=== PATIENT | female | born 1960 | race Caucasian/White ===

== ENCOUNTER 2018-03-01 10:27 | Emergency (ER) | payer OTHER ==
[2018-03-01] MEDS ORDERED: AMOXicillin 250 MG CAP ONE (11:13)
[2018-03-01] MEDS ORDERED: Bacitracin Zinc 1 Packet ONE (11:13)
== END 2018-03-01 11:30 | disposition home or self-care (01) ==
LOC: BURERS 10:27
DX: S71.151A Open bite, right thigh, initial encounter (principal); I10 Essential (primary) hypertension; E11.9 Type 2 diabetes mellitus without complications; Z79.84 Long term (current) use of oral hypoglycemic drugs; Z79.899 Other long term (current) drug therapy; W54.0XXA Bitten by dog, initial encounter
CPT/HCPCS: 99283

== ENCOUNTER 2019-04-30 11:36 | Emergency (ER) | payer OTHER ==
[2019-04-30] MEDS ORDERED: Amoxicillin/Potassium Clav 875 MG TAB ONE (12:16)
[2019-04-30] MEDS ORDERED: Adacel (T-DAP) 0.5 ML SYRINGE ONE (12:20)
== END 2019-04-30 12:26 | disposition home or self-care (01) ==
LOC: BURERS 11:36
DX: S61.251A Open bite of left index finger without damage to nail, initial encounter (principal); I10 Essential (primary) hypertension; E11.9 Type 2 diabetes mellitus without complications; Z79.899 Other long term (current) drug therapy; Z23 Encounter for immunization; Z79.82 Long term (current) use of aspirin; Z79.84 Long term (current) use of oral hypoglycemic drugs; W54.0XXA Bitten by dog, initial encounter
CPT/HCPCS: 90471; 90715